=== PATIENT | male | born 1950 | race Caucasian/White ===

== ENCOUNTER → 2016-07-05 | Outpatient (CLI) | payer BC ==
[2016-07-05 11:50] LABS: Bilirubin, Delta 0.4 mg/dL (0.0-0.2); Total Protein 7.1 g/dL (6.3-8.2)
== END | disposition home or self-care (01) ==
LOC: LABWHC1 11:12
PROVIDERS: ATTEND Internal Medicine Interventional Cardiology
DX: E78.2 Mixed hyperlipidemia (principal)
CPT/HCPCS: 36415; 80061; 80076

== ENCOUNTER 2018-03-04 18:29 | Emergency (ER) | payer MEDICARE ==
[2018-03-04 18:45] VITALS: RESP 18
[2018-03-04 20:07] LABS: RBC,Urine >182 /hpf (0-5)
[2018-03-04 20:09] LABS: Color,Urine Red
[2018-03-04 20:10] LABS: Appearance,Urine Bloody (Clear); WBC,Urine 32 /hpf (0-5)
--- NOTE | 2018-03-04 20:11 | ED ---
General Adult HPI - General Chief complaint: Urogenital Stated complaint: Blood in Urine/Hard time Urinating Source: patient Mode of arrival: ambulatory Limitations: no limitations - History of Present Illness Initial comments: Dictation was produced using Ever[employer] dictation software. please excuse any grammatical, word or spelling errors. Chief Complaint: 67-year-old male with past medical history of AL on antiplatelet therapy presents with hematuria. History of Present Illness: 67-year-old male presents with hematuria. Back on the patient had a incisional urethral widening surgery done by Dr. Sanchez. Patient states that he was with a Quintana for 2 days after the procedure. Quintana was removed and patient had benign post operative course. Today he was urinating when he pedal a lot of blood. He had not noticed this much hematuria the past. Denies any pain. Patient also states that he is having difficulty urinating. He called the on-call physician who stated patient To the emergency department if he is having difficulty voiding. Patient does not have any other complaints. The ROS documented in this emergency department record has been reviewed and confirmed by me. Those systems with pertinent positive or negative responses have been documented in the HPI. All other systems are other negative and/or noncontributory. - Related Data Home Medications Medication Instructions Recorded Confirmed Aspirin [Adult Low Dose Aspirin EC] 1 tab PO DAILY 03/29/16 03/29/16 Atorvastatin [Lipitor] 1 tab PO DAILY 03/29/16 03/29/16 Budesonide/Formoterol Fumarate 2 puff INHALATION BID 03/29/16 03/29/16 [Symbicort 80-4.5 Mcg Inhaler] Cholecalciferol [Vitamin D3] 1 tab PO DAILY 03/29/16 03/29/16 Ipratropium [place] [Atrovent Hfa] 2 puff INHALATION DAILY PRN 03/29/16 03/29/16 Prasugrel [Effient] 1 tab PO DAILY 03/29/16 03/29/16 Allergies Allergy/AdvReac Type Severity Reaction Status Date / Time aspirin Allergy Rash/Hives Verified 03/04/18 18:45 atenolol Allergy Rash/Hives Verified 03/04/18 18:45 formaldehyde Allergy Rash/Hives Verified 03/04/18 18:45 methylprednisolone Allergy Rash/Hives Verified 03/04/18 18:45 [From Depo-Medrol] Penicillins Allergy Swelling Verified 03/04/18 18:45 atorvastatin [From Lipitor] AdvReac Unknown Verified 03/04/18 18:45 cortisone AdvReac Unknown Verified 03/04/18 18:45 Review of Systems ROS Statement: Those systems with pertinent positive or pertinent negative responses have been documented in the HPI. ROS Other: All systems not noted in ROS Statement are negative. Past Medical History Past Medical History: COPD, Myocardial Infarction (AL), Osteoarthritis (OA), Respiratory Disorder Additional Past Medical History / Comment(s): AL 08/2015 5 STENTS PLACED WITH MONITOR UNDER SKIN IN CHEST Last Myocardial Infarction Date:: 08/2015 History of Any Multi-Drug Resistant Organisms: None Reported Past Surgical History: Back Surgery, Heart Catheterization With Stent, Orthopedic Surgery Additional Past Surgical History / Comment(s): KNEE AT 18 YR; ROTATOR CUFF (R); RIGHT ELBOW; 2 BULGING DISC WITH FUSION; Past Anesthesia/Blood Transfusion Reactions: No Reported Reaction Date of Last Stent Placement:: 5 STENTS AND MONITOR PLACED IN CHEST UNDER THE SKIN Past Psychological History: No Psychological Hx Reported Smoking Status: Former smoker Past Alcohol Use History: Occasional Past Drug Use History: None Reported - Past Family History Mother Family Medical History: Cancer General Exam - General Exam Comments Initial Comments: PHYSICAL EXAM: General Impression: Alert and oriented x3, not in acute distress HEENT: Normocephalic atraumatic, extra-ocular movements intact, pupils equal and reactive to light bilaterally, mucous membranes moist. Cardiovascular: Heart regular rate and rhythm, S1&S2 audible, no murmurs, rubs or gallops Chest: Lungs clear to auscultation bilaterally, no rhonchi, no wheeze, no rales Abdomen: Bowel sounds present, abdomen soft, non-tender, non-distended, no organomegaly Musculoskeletal: Pulses present and equal in all extremities, no peripheral edema Motor: Power 5/5 bilaterally, no focal deficits noted Neurological: CN II-XII grossly intact, no focal motor or sensory deficits noted Skin: Intact with no visualized rashes Psych: Normal affect and mood exam: No testicular tenderness, some blood at the urethral meatus. Limitations: no limitations Course Vital Signs 03/04/18 18:43 Temperature 98.7 F Pulse Rate 75 Respiratory 18 Rate O2 Sat by Pulse 98 Oximetry Medical Decision Making - Medical Decision Making ED course: Now presents chief complaint of hematuria and urinary retention. Bladder scan was performed showing approximately 90 mL of retained urine. As upon arrival are within acceptable limits. 16-Romanian Quintana catheter was placed with drainage of approximately 400 mL of bloody urine. Patient noted immediate relief after Quintana catheter was placed. Discussed patient case with Dr. Ruiz who was on-call for Dr. Sanchez. Once patient follow-up with Dr. Sanchez tomorrow.Laboratory evaluation was obtained to evaluate hemoglobin and platelet count. CBC is unremarkable. Coag panel is negative. Metabolic panel is negative. Urine shows 32 white blood cells. It is unclear whether this represents urinary tract infection. Urine culture sent. Patient be discharge. Told to follow-up with his urologist tomorrow. Patient provided leg bag. Patient understands disposition and plan. - Lab Data Result diagrams: 03/04/18 20:46 03/04/18 20:46 Lab Results 03/04/18 03/04/18 03/04/18 Range/Units 19:45 20:46 20:46 WBC 9.1 (3.8-10.6) k/uL RBC 4.43 (4.30-5.90) m/uL Hgb 14.5 (13.0-17.5) gm/dL Hct 43.6 (39.0-53.0) % MCV 98.3 (80.0-100.0) fL MCH 32.7 (25.0-35.0) pg MCHC 33.3 (31.0-37.0) g/dL RDW 11.9 (11.5-15.5) % Plt Count 205 (150-450) k/uL Neutrophils % 78 % Lymphocytes % 13 % Monocytes % 5 % Eosinophils % 2 % Basophils % 1 % Neutrophils # 7.1 (1.3-7.7) k/uL Lymphocytes # 1.2 (1.0-4.8) k/uL Monocytes # 0.5 (0-1.0) k/uL Eosinophils # 0.2 (0-0.7) k/uL Basophils # 0.1 (0-0.2) k/uL PT (9.0-12.0) sec INR (<1.2) Sodium 140 (137-145) mmol/L Potassium 4.2 (3.5-5.1) mmol/L Chloride 107 (98-107) mmol/L Carbon Dioxide 25 (22-30) mmol/L Anion Gap 8 mmol/L BUN 15 (9-20) mg/dL Creatinine 0.64 L (0.66-1.25) mg/dL Est GFR (CKD-EPI)AfAm >90 (>60 ml/min/1.73 sqM) Est GFR (CKD-EPI)NonAf >90 (>60 ml/min/1.73 sqM) Glucose 96 (74-99) mg/dL Calcium 8.9 (8.4-10.2) mg/dL Urine Color Red Urine Appearance Bloody (Clear) Urine RBC >182 H (0-5) /hpf Urine WBC 32 H (0-5) /hpf 03/04/18 Range/Units 20:46 WBC (3.8-10.6) k/uL RBC (4.30-5.90) m/uL Hgb (13.0-17.5) gm/dL Hct (39.0-53.0) % MCV (80.0-100.0) fL MCH (25.0-35.0) pg MCHC (31.0-37.0) g/dL RDW (11.5-15.5) % Plt Count (150-450) k/uL Neutrophils % % Lymphocytes % % Monocytes % % Eosinophils % % Basophils % % Neutrophils # (1.3-7.7) k/uL Lymphocytes # (1.0-4.8) k/uL Monocytes # (0-1.0) k/uL Eosinophils # (0-0.7) k/uL Basophils # (0-0.2) k/uL PT 11.6 (9.0-12.0) sec INR 1.2 H (<1.2) Sodium (137-145) mmol/L Potassium (3.5-5.1) mmol/L Chloride (98-107) mmol/L Carbon Dioxide (22-30) mmol/L Anion Gap mmol/L BUN (9-20) mg/dL Creatinine (0.66-1.25) mg/dL Est GFR (CKD-EPI)AfAm (>60 ml/min/1.73 sqM) Est GFR (CKD-EPI)NonAf (>60 ml/min/1.73 sqM) Glucose (74-99) mg/dL Calcium (8.4-10.2) mg/dL Urine Color Urine Appearance (Clear) Urine RBC (0-5) /hpf Urine WBC (0-5) /hpf Disposition Clinical Impression: Hematuria Disposition: HOME SELF-CARE Condition: Good Instructions: Hematuria (ED) Is patient prescribed a controlled substance at d/c from ED?: No Referrals: Naveed Chavira DO [Primary Care Provider] - 1-2 days Irwin Toribio MD [STAFF PHYSICIAN] - 1-2 days Time of Disposition: 21:19
[2018-03-04 21:02] LABS: Basophils # (A) 0.1 k/uL (0-0.2); Basophils % (A) 1 %; Eosinophils # (A) 0.2 k/uL (0-0.7); Eosinophils % (A) 2 %; HCT 43.6 % (39.0-53.0); HGB 14.5 gm/dL (13.0-17.5); INR 1.2 (<1.2); Lymphocytes # (A) 1.2 k/uL (1.0-4.8); Lymphocytes % (A) 13 %; MCH 32.7 pg (25.0-35.0); MCHC 33.3 g/dL (31.0-37.0); MCV 98.3 fL (80.0-100.0); Mean Platelet Volume 7.9; Monocytes # (A) 0.5 k/uL (0-1.0); Monocytes % (A) 5 %; Neutrophils # (A) 7.1 k/uL (1.3-7.7); Neutrophils % (A) 78 %; Platelet Count 205 k/uL (150-450); Prothrombin Time 11.6 sec (9.0-12.0); RBC 4.43 m/uL (4.30-5.90); RDW 11.9 % (11.5-15.5); WBC 9.1 k/uL (3.8-10.6)
[2018-03-04 21:03] LABS: Anion Gap 8 mmol/L; Blood Urea Nitrogen 15 mg/dL (9-20); Calcium 8.9 mg/dL (8.4-10.2); Carbon Dioxide 25 mmol/L (22-30); Chloride 107 mmol/L (98-107); Glucose 96 mg/dL (74-99); Potassium 4.2 mmol/L (3.5-5.1); Sodium 140 mmol/L (137-145)
[2018-03-04 21:20] VITALS: BP 153/81; PULSE 60; TEMP 97.9
== END 2018-03-04 21:57 | disposition home or self-care (01) ==
LOC: EC 18:29
DX: R31.9 Hematuria, unspecified (principal); R82.99 Other abnormal findings in urine; R33.9 Retention of urine, unspecified; J44.9 Chronic obstructive pulmonary disease, unspecified; M19.90 Unspecified osteoarthritis, unspecified site; I25.2 Old myocardial infarction; Z87.891 Personal history of nicotine dependence; Z88.0 Allergy status to penicillin; Z88.6 Allergy status to analgesic agent; Z88.8 Allergy status to other drugs, medicaments and biological substances; Z91.048 Other nonmedicinal substance allergy status; Z79.51 Long term (current) use of inhaled steroids; Z79.82 Long term (current) use of aspirin; Z79.899 Other long term (current) drug therapy
CPT/HCPCS: 36415; 80048; 81001; 85025; 85610; 87086; 99284

== ENCOUNTER → 2021-01-21 | Outpatient (CLI) | payer MEDICARE ==
--- NOTE | 2021-01-21 21:02 | CONS ---
CONSULTATION DATE OF SERVICE: 01/21/2021 70-year-old gentleman has been evaluated in [facility] for possible obstructive sleep apnea-hypopnea syndrome. HISTORY OF PRESENT ILLNESS/SLEEP WAKE EVALUATION: Patient in the past a shift supervisor rn worker and he continues to go to bed in the morning. SLEEP SCHEDULE: He usually goes to sleep around 5:00 am and then he does not sleep well and wakes up around 8:30. DURING SLEEP: He snores and according to his , stops breathing during sleep. He wakes up from sleep up to 3 times. He usually sleeps on the side position. He usually does not take any naps during the day. [place] Sleepiness Scale is 1. PAST MEDICAL HISTORY: Positive for 2 heart attacks, status post stent insertion to coronary arteries, COPD, hyperlipidemia. PAST SURGICAL HISTORY: Neck surgery, knee surgery, elbow surgery, 6 angioplasties with stents. SOCIAL HISTORY: Positive for smoking for 34 years up to 2 packs a day, quit about 18 years ago. Alcohol consumption occasional. MEDICATIONS: Metoprolol 50 mg twice a day, clopidogrel 75 mg once a day, atorvastatin 20 mg once a day, aspirin 81 mg once a day, once a day, Atrovent as needed. FAMILY HISTORY: Cancer by his mother. REVIEW OF SYSTEMS: Significant difficulties with initiating sleep and multiple awakenings from sleep and falling asleep. Pain in the right shoulder. No headache. No blood in the stool or urine. PHYSICAL EXAMINATION: GENERAL: A gentleman without distress. BP 130/74, HR 60, RR 15, height 5 feet 10 and a half inches, weight 210 pounds, body mass index 29.7, temperature 98.3, oxygen saturation on room air 96%. Oropharynx: Extremely low position of soft palate, Mallampati 4. NECK: Supple, no JVD. Thyroid is not palpable. LUNGS: Clear to percussion and to auscultation. Good air exchange. No wheezing or rhonchi. HEART: S1, S2 regular. No murmurs, gallops, or rubs. ABDOMEN: Soft and nontender. Bowel sounds are present. No organomegaly appreciated. EXTREMITIES: No clubbing or cyanosis. CEMENT BLOCK MAKER: Awake, alert, and oriented X3. Cranial nerves 2 to 7 intact. There is no fasciculation or atrophy. noted. No focal deficits observed. IMPRESSION: 1. Snoring, witnessed episodes of stopped breathing during sleep, multiple awakenings from sleep, extremely low position of soft palate, Mallampati 4, obstructive sleep apnea-hypopnea syndrome. 2. Chronic obstructive pulmonary disease. 3. Insomnia, significant difficulties to initiate sleep. Regularly the patient sleeps only for several hours. 4. Coronary artery disease, status post heart attacks x2 and several stent insertions. 5. Hyperlipidemia. 6. Status post neck surgery. 7. Status post knee surgery. 8. Status post elbow surgery. PLAN: 1. Polysomnogram for evaluation of patient breathing during sleep. Home sleep apnea test is not indicated because of severe insomnia. 2. CPAP/BiPAP titration if sleep study confirms obstructive sleep apnea-hypopnea syndrome. 3. Preferable position during sleep on the side. 4. No driving if patient feels any sleepiness. 5. I will see patient for follow up visit to explain results of testing and following plan. Thank you very much for referring this patient for consultation. Sincerely, Abebe Diallo MD, PhD, FAASM Diplomat of [employer] Sleep Medicine Board of [employer] [facility] [place] MMODL / YOSELYNN: [phone] /
== END ==
LOC: SLEEP 14:16
PROVIDERS: ATTEND Internal Medicine
DX: G47.33 Obstructive sleep apnea (adult) (pediatric) (principal); J44.9 Chronic obstructive pulmonary disease, unspecified; E78.5 Hyperlipidemia, unspecified; I25.10 Atherosclerotic heart disease of native coronary artery without angina pectoris; I25.2 Old myocardial infarction; Z98.890 Other specified postprocedural states; Z95.5 Presence of coronary angioplasty implant and graft; Z87.891 Personal history of nicotine dependence; Z79.82 Long term (current) use of aspirin; Z88.0 Allergy status to penicillin; Z88.2 Allergy status to sulfonamides; Z88.5 Allergy status to narcotic agent; Z88.6 Allergy status to analgesic agent; Z88.8 Allergy status to other drugs, medicaments and biological substances
CPT/HCPCS: 99211

== ENCOUNTER → 2023-07-19 | Outpatient (CLI) | payer MEDICARE ==
[2023-07-19 14:52] LABS: African American GFR (CKD) >90 (>60 ml/min/1.73 sqM); Blood Urea Nitrogen 17 mg/dL (9-20); Non-African American GFR(CKD) >90 (>60 ml/min/1.73 sqM)
--- NOTE | 2023-07-19 21:36 | CT ---
EXAMINATION TYPE: CT angio abd aorta w/Runoff CT DLP: 3572 mGycm, Automated exposure control for dose reduction was used. DATE OF EXAM: 07/19/2023 9:10 PM COMPARISON: 10/14/2014. CLINICAL INDICATION:Male, 73 years old with history of I71.40 AORTIC ANEURYSM; PHH, Monitoring abdomi nal aneurysm TECHNIQUE: Multiple thin slice sub-millimeter images were obtained after administration of contrast. 3-D reconstructed images and maximum intensity projection images were obtained. CT angio abd aorta w /Runoff CT Contrast: Contrast used:80 mL of Isovue 370 without and with IV Contrast, Oral contrast used: None FINDINGS: CTA Abdomen and pelvis: The visualized portions of the descending thoracic aorta are within normal li mits. The abdominal aorta and major branches are patent. No evidence for dissection. No evidence for occlusion. The celiac axis, superior mesenteric artery and bilateral renal arteries are patent. Infra renal abdominal aortic aneurysm measuring 40 x 35 mm with mural thrombus. Previously measuring 34 x 2 0 mm on 10/14/2014. The inferior mesenteric artery is patent. There is atherosclerosis of the common il iac and external iliac arteries. CTA Lower extremities: Right: Scattered atherosclerosis throughout the arterial vasculature. No evidence of occlusion. The o rigin of the common femoral artery demonstrates at least 7290 % stenosis series 4 image 210. The supe rficial femoral artery also demonstrates 50-70% stenosis distally series 4 image 322. The proximal po pliteal artery also demonstrates high-grade stenosis of at least 70-90% series 4 image 383. Poor bolus timing limits evaluation of the legs. Anterior and posterior tibial arteries as well as th e peroneal artery are patent. Within the limitations of exam the anterior and posterior tibial arteri es cross the ankle. Left: Scattered atherosclerosis throughout the arterial vasculature. No evidence of occlusion. There is at least 70% stenosis at the origin of the common femoral artery series 101 image 68. Official fem oral artery demonstrates high-grade stenosis in the proximal portion of at least 90% stenosis series 101 image 100. There is multiple areas of high-grade stenosis in the distal superficial femoral arter y series 7 image 88. At least 50% stenosis at multiple areas of the popliteal artery on the left incl uding series 101 image 120 and 124. Poor bolus timing limits evaluation of the legs. Anterior and posterior tibial arteries as well as th e peroneal artery are patent. Within the limitations of exam the anterior and posterior tibial arteri es cross the ankle. LOWER CHEST: No evidence of focal consolidation, pneumothorax or pleural effusion. LIVER: Unremarkable GALLBLADDER AND BILE DUCTS: Unremarkable. PANCREAS: Unremarkable. SPLEEN: Unremarkable. ADRENAL GLANDS: Unremarkable. KIDNEYS AND URETERS: No evidence of hydronephrosis or renal calculus. The ureters are unremarkable. PELVIS BLADDER: Unremarkable REPRODUCTIVE: Prostate gland is enlarged measuring up to 5.0 cm in transverse dimension. ABDOMEN & PE LVIS STOMACH AND BOWEL: No evidence of bowel obstruction. Scattered colonic diverticula. PERITONEUM: No evidence of pneumoperitoneum or free fluid. VASCULATURE: No evidence of aortic aneurysm. MUSCULOSKELETAL: No acute osseous abnormalities LYMPH NODES: No gross evidence for lymphadenopathy. SOFT TISSUE/ABDOMINAL WALL: Fatty changes to the left inguinal canal. IMPRESSION 1. Poor bolus timing limits evaluation of the extremities. There is multiple areas of high-grade tammy nosis as described above. At least 2 vessels cross the ankles. 2. Infrarenal abdominal aortic aneurysm is increase in size compared to 2015 exam. 3. Large severe atherosclerosis. 4. Colonic diverticulosis. 5. Prostatomegaly, correlate with serum PSA. 6. Left fat-containing inguinal hernia.
== END | disposition home or self-care (01) ==
LOC: RADCTMAIN 14:00
PROVIDERS: ATTEND Surgery
DX: I71.43 Infrarenal abdominal aortic aneurysm, without rupture (principal); N40.0 Benign prostatic hyperplasia without lower urinary tract symptoms; K40.90 Unilateral inguinal hernia, without obstruction or gangrene, not specified as recurrent; K57.30 Diverticulosis of large intestine without perforation or abscess without bleeding; I70.8 Atherosclerosis of other arteries
CPT/HCPCS: 82565; 84520; 75635; 36415; Q9967